=== PATIENT | male | born 1975 | race Two or more races ===

== ENCOUNTER → 2017-02-19 | Outpatient (CLI) | payer OTHER ==
[~2017-02-19] MED LIST: BENTYL20 MG DOB
--- NOTE | ~2017-02-19 | US115 ---
[facility] A [facility] of [facility] RADIOLOGY TEXT RESULTS PATIENT: JARED WILSON LOCATION: [facility] : 71 UNIT #: [id number] AGE: [address]: Jae Heath MD SEX: M ORDER DR: [id number] [facility] [address] [place], [place] [address] [id number] O MR#: [id number] Acc #: [id number] NAME: JARED WILSON : 1975 SEX: M STUDY DATE/TIME: 02/19/2017 15:20 UNIT: [facility] ROOM: STUDY DESCRIPTION: US Scrotum and Contents Attending Physician: Jae Heath M.D. Referring Physician: Jae Heath M.D. Ordering Physician: Jae Heath M.D. Primary Care Physician: Primary Care Physician No MEDICAL IMAGING REPORT This report is preliminary unless electronic signature is present EXAM Scrotal ultrasound INDICATIONS Generalized scrotal pain for past 2 years. PROCEDURE Johnson-scale and Doppler imaging scrotum and scrotal contents. COMPARISON: None FINDINGS Right testicle measures 3.5 x 1.7 x 2.6 cm. No mass. Left testicle measures 3.9 x 2.3 x 2.5 cm. Both testicles show symmetric flow. Bilateral moderate sized, somewhat complicated hydrocele. IMPRESSION 1. Moderate-sized bilateral complicated hydroceles including some debris. 2. Otherwise negative scrotal ultrasound. Dictated by... Tony Johnson M.D. THIS IS AN ELECTRONICALLY VERIFIED REPORT Tony Johnson M.D. at 02/21/2017 7:11 AM ESTEFANIA/keegan TD: 02/20/2017 14:24 JOB #: [id number] MEDICAL IMAGING REPORT [facility] A Service of [facility] RADIOLOGY TEXT RESULTS PATIENT: JARED WILSON LOCATION: [facility] : 71 UNIT #: [id number] AGE: [address]: Jae Heath MD SEX: M ORDER DR: Page 1 of 1 COPY
== END | disposition home or self-care (01) ==
LOC: CGUS 15:00
DX: I86.1 Scrotal varices (principal); N41.0 Acute prostatitis; N45.1 Epididymitis; N43.3 Hydrocele, unspecified
CPT/HCPCS: 76870; 93976